=== PATIENT | female | born 2000 | race Caucasian/White ===

== ENCOUNTER 2022-05-26 17:41 | Emergency (ER) | payer OTHER ==
[~2022-05-26] VITALS: Ht 152.4 cm; Wt 73.8 kg
[2022-05-26 17:42] VITALS: BP 150/96
[2022-05-26 18:15] LABS: BASO % 0.4 % (0.0-1.0); EOS # 0.1 10^3/uL (0.0-0.5); EOS % 1.4 % (0.0-3.0); HEMATOCRIT 42.3 % (36.0-47.0); HEMOGLOBIN 14.1 g/dl (12.0-15.5); LYMPH # 2.9 10^3/uL (1.5-5.0); LYMPH % 38.1 % (24.0-44.0); MEAN CORPUSCULAR HEMOGLOBIN 29.1 pg (27.0-33.0); MEAN CORPUSCULAR HGB CONC 33.3 g/dl (32.0-36.5); MEAN CORPUSCULAR VOLUME 87.4 fl (80.0-96.0); MONO # 0.5 10^3/uL (0.0-0.8); MONO % 6.4 % (2.0-8.0); NEUTROPHILS # 4.1 10^3/uL (1.5-8.5); NEUTROPHILS % 53.4 % (36.0-66.0); PLATELET COUNT, AUTOMATED 242 10^3/uL (150-450); RED BLOOD COUNT 4.84 10^6/uL (4.00-5.40); WHITE BLOOD COUNT 7.7 10^3/uL (4.0-10.0)
[2022-05-26 18:34] LABS: ALBUMIN 3.8 GM/DL (3.2-5.2); ALT/SGPT 55 U/L (12-78); BILIRUBIN,DIRECT < 0.1 MG/DL (0.0-0.2); BILIRUBIN,TOTAL 0.3 MG/DL (0.2-1.0); BLOOD UREA NITROGEN 9 MG/DL (7-18); CALCIUM LEVEL 9.2 MG/DL (8.5-10.1); CARBON DIOXIDE LEVEL 25 MEQ/L (21-32); CHLORIDE LEVEL 111 MEQ/L (98-107); CREATININE FOR GFR 0.77 MG/DL (0.55-1.30); GLOMERULAR FILTRATION RATE > 60.0 (>60); GLUCOSE, FASTING 81 MG/DL (70-100); LIPASE 90 U/L (73-393); POTASSIUM SERUM 3.6 MEQ/L (3.5-5.1); SODIUM LEVEL 142 MEQ/L (136-145); TOTAL PROTEIN 7.3 GM/DL (6.4-8.2)
[2022-05-26 18:48] LABS: HCG, SERUM QUALITATIVE NEGATIVE (NEGATIVE)
[2022-05-26] MEDS ORDERED: ONDANSETRON 4MG ORAL DISINTEGRATING TAB PO ONE (21:20)
[2022-05-26] MEDS ORDERED: PSEUDOEPHEDRINE 30 MG TAB PO STA (21:20)
[2022-05-26] MEDS ORDERED: ONDA4TAB6 PO (21:39)
[2022-05-26] MEDS ORDERED: PSEU120T19 PO (21:39)
== END 2022-05-26 21:57 | disposition home or self-care (01) ==
LOC: M ED 17:41
DX: R09.81 Nasal congestion (principal); R10.9 Unspecified abdominal pain; R11.2 Nausea with vomiting, unspecified; Z20.9 Contact with and (suspected) exposure to unspecified communicable disease